=== PATIENT | female | born 2005 | race Two or more races ===

== ENCOUNTER 2023-07-20 00:17 | Emergency (ER) | payer OTHER ==
[~2023-07-20] VITALS: Ht 157.5 cm; Wt 65.0 kg
[2023-07-20 00:37] VITALS: TEMP 99.1
[2023-07-20 01:59] LABS: APPEARANCE,URINE HAZY (CLEAR); BILIRUBIN,URINE NEGATIVE (NEGATIVE); GLUCOSE, URINE (UA) NEGATIVE (NEGATIVE); KETONES,URINE NEGATIVE (NEGATIVE); LEUKOCYTE ESTERASE ,URINE LARGE (NEGATIVE); NITRATE,URINE NEGATIVE (NEGATIVE); OCCULT BLOOD,URINE LARGE (NEGATIVE); PH,URINE 5.5 (5.0-8.0); PROTEIN,URINE 30-70 mg/dL (NEGATIVE); SPECIFIC GRAVITIY, URINE 1.011 (1.003-1.030); UROBILINOGEN,URINE <=1.0 mg/dL (<=1.0)
[2023-07-20 02:05] LABS: BACTERIA,URINE Rare /HPF (None Seen); SQUAMOUS EPITHELIAL CELL,UR Rare /LPF (None Seen); WBC,URINE 26-50 /HPF (0-5)
[2023-07-20] MEDS ORDERED: CEPH-558 PO (02:18)
[2023-07-20 02:34] VITALS: BP 117/67; PULSE 90; RESP 16
== END 2023-07-20 02:49 | disposition home or self-care (01) ==
LOC: EMS 00:18
DX: N39.0 Urinary tract infection, site not specified (principal)
CPT/HCPCS: 81001; 84703; 87086; 87186; 99283

== ENCOUNTER 2023-07-29 19:59 | Emergency (ER) | payer OTHER ==
[~2023-07-29] VITALS: Ht 152.4 cm; Wt 61.8 kg
[~2023-07-29 19:59] MED LIST: CEPH-558 PO
[2023-07-29 20:01] VITALS: TEMP 98.6
[2023-07-29 20:21] LABS: APPEARANCE,URINE HAZY (CLEAR); BILIRUBIN,URINE NEGATIVE (NEGATIVE); COLOR,URINE LIGHT ORANGE (YELLOW); GLUCOSE, URINE (UA) NEGATIVE (NEGATIVE); KETONES,URINE NEGATIVE (NEGATIVE); LEUKOCYTE ESTERASE ,URINE LARGE (NEGATIVE); NITRATE,URINE NEGATIVE (NEGATIVE); OCCULT BLOOD,URINE LARGE (NEGATIVE); PH,URINE 5.5 (5.0-8.0); PROTEIN,URINE 30-70 mg/dL (NEGATIVE); SPECIFIC GRAVITIY, URINE 1.025 (1.003-1.030); UROBILINOGEN,URINE <=1.0 mg/dL (<=1.0)
[2023-07-29 21:00] VITALS: BP 124/71; PULSE 81; RESP 12
[2023-07-29 21:30] LABS: BACTERIA,URINE Rare /HPF (None Seen); RBC,URINE >100 /HPF (0-2); WBC,URINE 51-100 /HPF (0-5)
[2023-07-29 21:31] LABS: SQUAMOUS EPITHELIAL CELL,UR None Seen /LPF (None Seen)
[2023-07-29] MEDS ORDERED: SULF-261 PO (21:40)
[2023-07-29] MEDS ORDERED: PHEN-846 PO (21:43)
[2023-07-29] MEDS ORDERED: LIDOCAINE/PF 1% 2 ML VIAL IM ONE (21:45)
[2023-07-29] MEDS ORDERED: CefTRIAXone SODIUM 1 GM/VIAL IM ONE (21:45)
== END 2023-07-29 23:36 | disposition home or self-care (01) ==
LOC: EMS 20:00
DX: N39.0 Urinary tract infection, site not specified (principal)
CPT/HCPCS: 99283; 81001; 87086; 87186; 96372; J0696; J3490